=== PATIENT | female | born 2000 | race Caucasian/White ===

== ENCOUNTER 2019-02-19 23:16 | Emergency (ER) | payer OTHER ==
[2019-02-19] MEDS ORDERED: ONDANSETRON 4 MG/2 ML VIAL IVP STA (23:26)
[2019-02-19] MEDS ORDERED: SODIUM CHLORIDE 0.9% 1,000 ML IV STA (23:26)
[2019-02-19] MEDS ORDERED: MORPHINE SULFATE 4 MG/ML SYRINGE IVP STA (23:27)
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
[2019-02-19 23:31] VITALS: BP 128/82; PULSE 60; RESP 19; TEMP 98.5
[2019-02-19 23:56] LABS: Glucose,Whole Blood 108 mg/dL (75-99)
[2019-02-20 00:05] LABS: Basophils # (A) 0.1 k/uL (0-0.2); Basophils % (A) 1 %; Eosinophils # (A) 0.9 k/uL (0-0.7); Eosinophils % (A) 10 %; HCT 42.8 % (34.0-46.0); HGB 14.1 gm/dL (11.4-16.0); Lymphocytes # (A) 3.8 k/uL (1.0-4.8); Lymphocytes % (A) 41 %; MCH 30.9 pg (25.0-35.0); MCV 93.7 fL (80.0-100.0); Mean Platelet Volume 6.1; Monocytes # (A) 0.4 k/uL (0-1.0); Monocytes % (A) 4 %; Neutrophils # (A) 3.9 k/uL (1.3-7.7); Neutrophils % (A) 42 %; Platelet Count 248 k/uL (150-450); RBC 4.56 m/uL (3.80-5.40); RDW 12.3 % (11.5-15.5); WBC 9.2 k/uL (4.0-11.0)
[2019-02-20 00:08] LABS: ALT 24 U/L (9-52); AST 22 U/L (14-36); African American GFR (CKD) >90 (>60 ml/min/1.73 sqM); Albumin 4.1 g/dL (3.5-5.0); Alcohol <10 mg/dL; Alkaline Phosphatase 34 U/L (38-126); Anion Gap 6 mmol/L; Blood Urea Nitrogen 8 mg/dL (7-17); Calcium 9.6 mg/dL (8.4-10.2); Carbon Dioxide 26 mmol/L (22-30); Chloride 109 mmol/L (98-107); Creatine Kinase 72 U/L (30-135); Glucose 97 mg/dL (74-99); Sodium 141 mmol/L (137-145); Total Bilirubin 0.5 mg/dL (0.2-1.3); Total Protein 6.7 g/dL (6.3-8.2)
[2019-02-20 00:13] LABS: Partial Thromboplastin Time 25.1 sec (22.0-30.0); Prothrombin Time 10.4 sec (9.0-12.0)
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
== END 2019-02-20 01:30 | disposition home or self-care (01) ==
LOC: EC 23:16
DX: S06.9X9A Unspecified intracranial injury with loss of consciousness of unspecified duration, initial encounter (principal); R07.89 Other chest pain; R68.84 Jaw pain; F17.200 Nicotine dependence, unspecified, uncomplicated; Z88.0 Allergy status to penicillin; V48.5XXA Car driver injured in noncollision transport accident in traffic accident, initial encounter; Y93.89 Activity, other specified; Y92.410 Unspecified street and highway as the place of occurrence of the external cause
CPT/HCPCS: 36415; 93005; 86900; 86901; 80053; 82550; 83605; 84484; 85025; 85610; 85730; 86850; 80320; 72125; 70486; 70450; 71260; 74177; 99285; 96374; 96375; 96361; J2270; J2405; Q9967

== ENCOUNTER 2019-04-28 22:11 | Emergency (ER) | payer OTHER ==
--- NOTE | 2019-04-28 22:45 | ED ---
Female Urogenital HPI - General Chief complaint: Vaginal Bleeding Stated complaint: 11 wks , cramping Time Seen by Provider: 04/28/19 22:22 Source: patient Mode of arrival: ambulatory Limitations: no limitations - History of Present Illness Initial comments: Patient is a 18-year-old female presenting to the emergency Department with complaints of lower abdominal cramping and vaginal spotting that started yesterday. Patient is currently 11 weeks . . She does not currently have an [facility], she is awaiting a callback from the office. Patient states she's been noticing cramping the last few days and then noticed spotting today. Patient states the spotting has been continuous. Patient denies fever, chills, nausea, vomiting. She has no other complaints at this time. Upon arrival to ER, vital signs are stable. - Related Data Home Medications Medication Instructions Recorded Confirmed No Known Home Medications 02/19/19 02/19/19 Allergies Allergy/AdvReac Type Severity Reaction Status Date / Time Penicillins Allergy Rash/Hives Verified 04/28/19 22:15 Review of Systems ROS Statement: Those systems with pertinent positive or pertinent negative responses have been documented in the HPI. ROS Other: All systems not noted in ROS Statement are negative. Past Medical History Past Medical History: No Reported History History of Any Multi-Drug Resistant Organisms: None Reported Past Surgical History: No Surgical Hx Reported Past Psychological History: No Psychological Hx Reported Smoking Status: Current every day smoker Past Alcohol Use History: Occasional Past Drug Use History: Marijuana General Exam - General Exam Comments Initial Comments: GENERAL: Well-appearing, well-nourished and in no acute distress. Will HEAD: Atraumatic, normocephalic. EYES: Pupils equal round and reactive to light, extraocular movements intact, sclera anicteric, conjunctiva are normal. ENT: TMs normal, nares patent, oropharynx clear without exudates. Moist mucous membranes. NECK: Normal range of motion, supple without lymphadenopathy or JVD. LUNGS: Breath sounds clear to auscultation bilaterally and equal. No wheezes rales or rhonchi. HEART: Regular rate and rhythm without murmurs, rubs or gallops. ABDOMEN: Tenderness to palpation of suprapubic and lower abdominal region. Soft, normoactive bowel sounds. No guarding, no rebound. No masses appreciated. EXTREMITIES: Normal range of motion, no pitting or edema. No clubbing or cyanosis. NEUROLOGICAL: Normal speech, normal gait. PSYCH: Normal mood, normal affect. SKIN: Warm, Dry, normal turgor, no rashes or lesions noted. Limitations: no limitations External exam: Present: normal external exam. Absent: lesions, lacerations Speculum exam: Present: vaginal bleeding. Absent: vaginal discharge, foreign body By manual exam: Present: normal by manual exam Course Vital Signs 04/28/19 04/29/19 22:15 00:34 Temperature 97.8 F 97.9 F Pulse Rate 58 L 102 H Respiratory 16 18 Rate Blood Pressure 101/61 122/68 O2 Sat by Pulse 100 98 Oximetry Medical Decision Making - Medical Decision Making Patient is a 18-year-old female presenting with lower abdominal cramping and vaginal bleeding 2 days. Patient is currently 11 weeks . . She does not currently have an [facility]. Vital signs stable. Lab work is un remarkable, UA is positive for blood, no signs of infection. Pelvic exam reveals mild vaginal bleeding. Ultrasound reveals demise at approximately 8 weeks gestation. These findings were discussed with the patient. Patient will follow up with [facility] on Tuesday. Strict return parameters were discussed with the patient, and she verbalized understanding. Patient is stable for discharge at this time. Case discussed with Dr. Young. - Lab Data Result diagrams: 04/28/19 23:11 04/28/19 23:11 Lab Results 04/28/19 04/28/19 04/28/19 Range/Units 23:11 23:11 23:11 WBC 10.2 (4.0-11.0) k/uL RBC 4.07 (3.80-5.40) m/uL Hgb 12.7 (11.4-16.0) gm/dL Hct 37.9 (34.0-46.0) % MCV 93.1 (80.0-100.0) fL MCH 31.2 (25.0-35.0) pg MCHC 33.5 (31.0-37.0) g/dL RDW 12.3 (11.5-15.5) % Plt Count 191 (150-450) k/uL Neutrophils % 50 % Lymphocytes % 34 % Monocytes % 5 % Eosinophils % 9 % Basophils % 0 % Neutrophils # 5.1 (1.3-7.7) k/uL Lymphocytes # 3.5 (1.0-4.8) k/uL Monocytes # 0.5 (0-1.0) k/uL Eosinophils # 0.9 H (0-0.7) k/uL Basophils # 0.0 (0-0.2) k/uL Sodium 137 (137-145) mmol/L Potassium 3.8 (3.5-5.1) mmol/L Chloride 105 (98-107) mmol/L Carbon Dioxide 25 (22-30) mmol/L Anion Gap 7 mmol/L BUN 14 (7-17) mg/dL Creatinine 0.74 (0.52-1.04) mg/dL Est GFR (CKD-EPI)AfAm >90 (>60 ml/min/1.73 sqM) Est GFR (CKD-EPI)NonAf >90 (>60 ml/min/1.73 sqM) Glucose 83 (74-99) mg/dL Calcium 9.2 (8.4-10.2) mg/dL Total Bilirubin 0.5 (0.2-1.3) mg/dL AST 20 (14-36) U/L ALT 10 (4-34) U/L Alkaline Phosphatase 31 L (38-126) U/L Total Protein 6.4 (6.3-8.2) g/dL Albumin 3.8 (3.5-5.0) g/dL HCG, Quant 1021.4 mIU/mL Urine Color Urine Appearance (Clear) Urine pH (5.0-8.0) Ur Specific [place] (1.001-1.035) Urine Protein (Negative) Urine Glucose (UA) (Negative) Urine Ketones (Negative) Urine Blood (Negative) Urine Nitrite (Negative) Urine Bilirubin (Negative) Urine Urobilinogen (<2.0) mg/dL Ur Leukocyte Esterase (Negative) Urine RBC (0-5) /hpf Urine WBC (0-5) /hpf Ur Squamous Epith Cells (0-4) /hpf Amorphous Sediment (None) /hpf Urine Bacteria (None) /hpf Urine Mucus (None) /hpf Blood Type A Positive Blood Type Recheck A Pos Bld Type Recheck Status No 04/28/19 Range/Units 23:11 WBC (4.0-11.0) k/uL RBC (3.80-5.40) m/uL Hgb (11.4-16.0) gm/dL Hct (34.0-46.0) % MCV (80.0-100.0) fL MCH (25.0-35.0) pg MCHC (31.0-37.0) g/dL RDW (11.5-15.5) % Plt Count (150-450) k/uL Neutrophils % % Lymphocytes % % Monocytes % % Eosinophils % % Basophils % % Neutrophils # (1.3-7.7) k/uL Lymphocytes # (1.0-4.8) k/uL Monocytes # (0-1.0) k/uL Eosinophils # (0-0.7) k/uL Basophils # (0-0.2) k/uL Sodium (137-145) mmol/L Potassium (3.5-5.1) mmol/L Chloride (98-107) mmol/L Carbon Dioxide (22-30) mmol/L Anion Gap mmol/L BUN (7-17) mg/dL Creatinine (0.52-1.04) mg/dL Est GFR (CKD-EPI)AfAm (>60 ml/min/1.73 sqM) Est GFR (CKD-EPI)NonAf (>60 ml/min/1.73 sqM) Glucose (74-99) mg/dL Calcium (8.4-10.2) mg/dL Total Bilirubin (0.2-1.3) mg/dL AST (14-36) U/L ALT (4-34) U/L Alkaline Phosphatase (38-126) U/L Total Protein (6.3-8.2) g/dL Albumin (3.5-5.0) g/dL HCG, Quant mIU/mL Urine Color Yellow Urine Appearance Turbid H (Clear) Urine pH 8.0 (5.0-8.0) Ur Specific [place] 1.019 (1.001-1.035) Urine Protein Trace H (Negative) Urine Glucose (UA) Negative (Negative) Urine Ketones Negative (Negative) Urine Blood Large H (Negative) Urine Nitrite Negative (Negative) Urine Bilirubin Negative (Negative) Urine Urobilinogen <2.0 (<2.0) mg/dL Ur Leukocyte Esterase Negative (Negative) Urine RBC 1 (0-5) /hpf Urine WBC 2 (0-5) /hpf Ur Squamous Epith Cells 4 (0-4) /hpf Amorphous Sediment Rare H (None) /hpf Urine Bacteria Rare H (None) /hpf Urine Mucus Rare H (None) /hpf Blood Type Blood Type Recheck Bld Type Recheck Status Disposition Clinical Impression: Incomplete miscarriage Disposition: HOME SELF-CARE Condition: Stable Instructions (If sedation given, give patient instructions): Miscarriage (ED) Additional Instructions: Please return to the Emergency Department if symptoms worsen or any other co ncerns. Follow-up with [facility] on Tuesday. Is patient prescribed a controlled substance at d/c from ED?: No Referrals: None,Stated [Primary Care Provider] - 1-2 days Shanna Rogers DO [Doctor of Osteopathic Medicine] - 1-2 days
--- NOTE | 2019-04-28 23:20 | US ---
EXAMINATION TYPE: Transabdominal DATE OF EXAM: 04/28/2019 11:08 PM COMPARISON: NONE CLINICAL HISTORY: 11wks, cramping, spotting. Spotting since yesterday. Patient states having an ultr asound at different facility at 6 weeks x 5 weeks ago- everything was normal per patient EXAM PERFORMED: Transvaginal (TV) and Transabdominal (TA) EXAM MEASUREMENTS: GESTATIONAL AGE / DATING Dates by LMP: LMP unknown Dates by Current Scan for: ( 7 weeks/6 days) EDC: 12/09/2019 MATERNAL ANATOMY Uterus: 10.3 x6.9 x 4.9 cm Right Ovary: 2.7 x 2.0 x 1.3 cm Left Ovary: 2.9 x 1.5 x 1.7 cm Post CDS / Adnexa: small amount of free fluid Presence of free fluid: no Presence of corpus luteal cyst: no Presence of subchorionic bleed: no GESTATION / SURVEY CRL: 1.5 cm (7 weeks/6 days) MSD: seen, not measured Yolk Sac (normal less than 6mm): not visualized Heart Rate: 0 bpm IUP: Demise Date of LMP: Unknown LMP, G1 Beta HcG (if available): Not available at this time GS and CRL visualized. YS not seen. Negative FHT's- color doppler and M-mode performed. Visual int ernal echoes seen within GS. Fluid seen in cervical canal. IMPRESSION: There is demise at approximately 8 weeks gestation.
[2019-04-28 23:44] LABS: Basophils % (A) 0 %; Eosinophils # (A) 0.9 k/uL (0-0.7); Eosinophils % (A) 9 %; HCT 37.9 % (34.0-46.0); HGB 12.7 gm/dL (11.4-16.0); Lymphocytes # (A) 3.5 k/uL (1.0-4.8); Lymphocytes % (A) 34 %; MCH 31.2 pg (25.0-35.0); MCHC 33.5 g/dL (31.0-37.0); MCV 93.1 fL (80.0-100.0); Mean Platelet Volume 7.6; Monocytes # (A) 0.5 k/uL (0-1.0); Monocytes % (A) 5 %; Neutrophils # (A) 5.1 k/uL (1.3-7.7); Neutrophils % (A) 50 %; Platelet Count 191 k/uL (150-450); RBC 4.07 m/uL (3.80-5.40); RDW 12.3 % (11.5-15.5); WBC 10.2 k/uL (4.0-11.0)
[2019-04-28 23:54] LABS: Amorphous Sediment,Urine Rare /hpf; Appearance,Urine Turbid (Clear); Bacteria,Urine Rare /hpf; Bilirubin,Urine Negative (Negative); Blood,Urine Large (Negative); Color,Urine Yellow; Glucose,Urine (UA) Negative (Negative); Ketones,Urine Negative (Negative); Leukocyte Esterase,Urine Negative (Negative); Mucus,Urine Rare /hpf; Nitrite,Urine Negative (Negative); Protein,Urine Trace (Negative); RBC,Urine 1 /hpf (0-5); Specific Gravity,Urine 1.019 (1.001-1.035); Squamous Epithelial Cell,Urine 4 /hpf (0-4); Urobilinogen,Urine <2.0 mg/dL (<2.0); WBC,Urine 2 /hpf (0-5)
[2019-04-28 23:56] LABS: ALT 10 U/L (4-34); AST 20 U/L (14-36); African American GFR (CKD) >90 (>60 ml/min/1.73 sqM); Albumin 3.8 g/dL (3.5-5.0); Alkaline Phosphatase 31 U/L (38-126); Anion Gap 7 mmol/L; Blood Urea Nitrogen 14 mg/dL (7-17); Calcium 9.2 mg/dL (8.4-10.2); Carbon Dioxide 25 mmol/L (22-30); Chloride 105 mmol/L (98-107); Glucose 83 mg/dL (74-99); Non-African American GFR(CKD) >90 (>60 ml/min/1.73 sqM); Potassium 3.8 mmol/L (3.5-5.1); Sodium 137 mmol/L (137-145); Total Bilirubin 0.5 mg/dL (0.2-1.3); Total Protein 6.4 g/dL (6.3-8.2)
[2019-04-29 00:12] LABS: HCG,Quantitative Serum 1021.4 mIU/mL
[2019-04-29 00:35] VITALS: BP 122/68; PULSE 102; RESP 18; TEMP 97.9
== END 2019-04-29 00:35 | disposition home or self-care (01) ==
LOC: EC 22:11
DX: O03.4 Incomplete spontaneous abortion without complication (principal); O99.331 Smoking (tobacco) complicating pregnancy, first trimester; F17.200 Nicotine dependence, unspecified, uncomplicated; Z88.0 Allergy status to penicillin; Z3A.08 8 weeks gestation of pregnancy
CPT/HCPCS: 36415; 76801; 76817; 80053; 81001; 84702; 85025; 86900; 86901; 99284

== ENCOUNTER → 2019-05-01 | Outpatient (CLI) | payer SELFPAY | END | disposition home or self-care (01) | LOC: LABWHC1 10:19 | PROVIDERS: ATTEND Obstetrics & Gynecology Obstetrics | DX: O02.1 Missed abortion (principal) | CPT/HCPCS: 36415; 84702 ==

== ENCOUNTER → 2019-05-02 | Outpatient (CLI) | payer SELFPAY | END | disposition home or self-care (01) | LOC: LABWHC1 10:38 | PROVIDERS: ATTEND Obstetrics & Gynecology Obstetrics | DX: O02.1 Missed abortion (principal) | CPT/HCPCS: 36415; 84702 ==